=== PATIENT | female | born 2000 | race Caucasian/White ===

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

== ENCOUNTER 2018-03-03 21:52 | Emergency (ER) | payer BC ==
[~2018-03-03] VITALS: Ht 172.7 cm; Wt 120.0 kg
[~2018-03-03 21:52] MED LIST changes: +LORA-254 PO; -LORA-434 PO
[2018-03-03 22:00] VITALS: BP 122/70
--- NOTE | 2018-03-03 22:43 | EKG ---
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
[2018-03-03 22:51] LABS: BARBITURATES NEG (NEG); BENZODIAZEPINES NEG (NEG); CANNABINOIDS NEG (NEG); COCAINE NEG (NEG); METHADONE NEG (NEG); OPIATES NEG (NEG); PHENCYCLIDINE NEG (NEG)
[2018-03-03 22:52] LABS: AMPHETAMINE/METHAMPHETAMINE NEG (NEG)
[2018-03-03 23:00] LABS: BILIRUBIN,URINE NEG (NEG); CLARITY,URINE HAZY; COLOR,URINE YELLOW; GLUCOSE,URINE NEG (NEG)
[2018-03-03] MEDS ORDERED: IV NORMAL SALINE 1,000ML 1,000 ML IV ONE (23:00)
[2018-03-03 23:01] LABS: BACTERIA,URINE FEW /HPF (0-FEW); NITRITE,URINE NEG (NEG); RBC,URINE OCC /HPF (0-2); SQUAMOUS EPITHELIAL CELL,UR FEW /LPF; UROBILINOGEN,URINE 2 mg/dL (0.2 mg/dL); WBC,URINE 0 /HPF (0-4)
[2018-03-03 23:02] LABS: U PREG PATIENT NEGATIVE (NEG)
[2018-03-03 23:41] LABS: BASO % 0 % (0-3); EOS # 0.1 x10^3/uL (0.0-0.7); EOS % 2 % (0-3); HEMATOCRIT 34.3 % (36.0-47.0); HEMOGLOBIN 11.3 g/dL (12.0-15.5); LYMPH # 3.4 x10^3/uL (1.0-4.8); LYMPH % 34 % (24-48); MEAN CORPUSCULAR HEMOGLOBIN 27 pg (25-35); MEAN CORPUSCULAR HGB CONC 33 g/dL (31-37); MEAN CORPUSCULAR VOLUME 82 fL (79-100); MONO # 0.6 x10^3/uL (0.0-1.1); MONO % 6 % (0-9); NEUT # 5.8 x10^3uL (1.8-7.7); NEUT % 58 % (31-73); PLATELET COUNT 231 x10^3/uL (140-400); RED BLOOD COUNT 4.19 x10^6/uL (3.50-5.40); RED CELL DISTRIBUTION WIDTH 15.3 % (11.5-14.5); WHITE BLOOD COUNT 10.1 x10^3/uL (4.0-11.0)
[2018-03-03 23:51] LABS: ALBUMIN 3.6 g/dL (3.4-5.0); ALBUMIN/GLOBULIN RATIO 0.9 (1.0-1.7); ALK PHOS 90 U/L (46-116); ALT (SGPT) 17 U/L (14-59); ANION GAP 10 (6-14); AST (SGOT) 11 U/L (15-37); BLOOD UREA NITROGEN 12 mg/dL (7-20); BUN/CREATININE RATIO 15 (6-20); CALCIUM 9.4 mg/dL (8.5-10.1); CARBON DIOXIDE 26 mmol/L (21-32); CHLORIDE 105 mmol/L (98-107); CREATININE 0.8 mg/dL (0.6-1.0); GFR 91.4; GLUCOSE 103 mg/dL (70-99); LIPASE 129 U/L (73-393); MAGNESIUM 1.9 mg/dL (1.8-2.4); POTASSIUM 3.2 mmol/L (3.5-5.1); SODIUM 141 mmol/L (136-145); TOTAL BILIRUBIN 0.2 mg/dL (0.2-1.0); TOTAL PROTEIN 7.8 g/dL (6.4-8.2)
--- NOTE | 2018-03-04 00:17 | PHYS DOC ---
Past History Additional Past Medical Histor: palpitations Past Surgical History: Other Additional Past Surgical Histo: cardiac ablation Smoking: Non-smoker Alcohol Use: None Drug Use: None Adult General Chief Complaint Chief Complaint: Palpitations HPI HPI 18-year-old female with past medical history of cardiac ablation presents with report of tachycardia up to 115 today. Denies fever or chills. Denies chest pain or shortness of breath. Denies leg swelling or calf tenderness. Patient reported concern that she might be in an arrhythmia. Denies . Denies trauma. Review of Systems Review of Systems Constitutional: Denies fever or chills [] Eyes: Denies change in visual acuity, redness, or eye pain [] HENT: Denies nasal congestion or sore throat [] Respiratory: Denies cough or shortness of breath [] Cardiovascular: Denies chest pain or syncope, reports palpitations GI: Denies abdominal pain, nausea, vomiting, or diarrhea [] Integument: Denies rash or skin lesions [] Neurologic: Denies headache, focal weakness or sensory changes Complete systems were reviewed and found to be within normal limits, except as documented in this note. Current Medications Current Medications Current Medications Medications (Trade) Dose Ordered Sig/Christina Start Time Stop Time Status Last Admin Dose Admin Sodium Chloride 1,000 ml @ 1,000 mls/hr 1X ONCE 03/03/18 23:00 03/03/18 23:59 DC Allergies Allergies Allergies Coded Allergies Type Severity Reaction Last Updated Verified strawberry Allergy Intermediate 08/09/16 Yes Physical Exam Physical Exam Constitutional: Well developed, well nourished, no acute distress, non-toxic appearance. [] HENT: Normocephalic, atraumatic, oropharynx moist, Eyes: conjunctiva normal, no discharge. [] Neck: Normal range of motion, no tenderness, supple, no meningeal signs Cardiovascular: Heart rate regular rhythm, no murmur [] Lungs & Thorax: Bilateral breath sounds clear to auscultation, no wheezing Skin: Warm, dry, no erythema, no rash. [] Extremities: No tenderness, ROM intact, no edema. [] Neurologic: Alert and oriented X 3, normal motor function, normal sensory function, no focal deficits noted. [] Psychologic: Affect normal, judgement normal, mood - appears anxious Current Patient Data Lab Results Laboratory Tests Test 03/03/18 22:20 03/03/18 22:30 03/03/18 23:10 Urine Collection Type Void Urine Color Yellow Urine Clarity Hazy Urine pH 5.5 Urine Specific [place] >=1.030 Urine Protein Neg (NEG-TRACE) Urine Glucose (UA) Neg mg/dL (NEG) Urine Ketones (Stick) Neg mg/dL (NEG) Urine Blood Small (NEG) Urine Nitrite Neg (NEG) Urine Bilirubin Neg (NEG) Urine Urobilinogen Dipstick 2 mg/dL (0.2 mg/dL) Urine Leukocyte Esterase Neg (NEG) Urine RBC Occ /HPF (0-2) Urine WBC 0 /HPF (0-4) Urine Squamous Epithelial Cells Few /LPF Urine Calcium Phosphate Crystals Present /HPF Urine Bacteria Few /HPF (0-FEW) Urine Mucus Slight /LPF Urine Opiates Screen Neg (NEG) Urine Methadone Screen Neg (NEG) Urine Barbiturates Neg (NEG) Urine Phencyclidine Screen Neg (NEG) Urine Amphetamine/Methamphetamine Neg (NEG) Urine Benzodiazepines Screen Neg (NEG) Urine Cocaine Screen Neg (NEG) Urine Cannabinoids Screen Neg (NEG) Urine Ethyl Alcohol Neg (NEG) Urine Test Negative (NEG) White Blood Count 10.1 x10^3/uL (4.0-11.0) Red Blood Count 4.19 x10^6/uL (3.50-5.40) Hemoglobin 11.3 g/dL (12.0-15.5) L Hematocrit 34.3 % (36.0-47.0) L Mean Corpuscular Volume 82 fL (79-100) Mean Corpuscular Hemoglobin 27 pg (25-35) Mean Corpuscular Hemoglobin Concent 33 g/dL (31-37) Red Cell Distribution Width 15.3 % (11.5-14.5) H Platelet Count 231 x10^3/uL (140-400) Neutrophils (%) (Auto) 58 % (31-73) Lymphocytes (%) (Auto) 34 % (24-48) Monocytes (%) (Auto) 6 % (0-9) Eosinophils (%) (Auto) 2 % (0-3) Basophils (%) (Auto) 0 % (0-3) Neutrophils # (Auto) 5.8 x10^3uL (1.8-7.7) Lymphocytes # (Auto) 3.4 x10^3/uL (1.0-4.8) Monocytes # (Auto) 0.6 x10^3/uL (0.0-1.1) Eosinophils # (Auto) 0.1 x10^3/uL (0.0-0.7) Basophils # (Auto) 0.0 x10^3/uL (0.0-0.2) Sodium Level 141 mmol/L (136-145) Potassium Level 3.2 mmol/L (3.5-5.1) L Chloride Level 105 mmol/L (98-107) Carbon Dioxide Level 26 mmol/L (21-32) Anion Gap 10 (6-14) Blood Urea Nitrogen 12 mg/dL (7-20) Creatinine 0.8 mg/dL (0.6-1.0) Estimated GFR (Cockcroft-Gault) 91.4 BUN/Creatinine Ratio 15 (6-20) Glucose Level 103 mg/dL (70-99) H Calcium Level 9.4 mg/dL (8.5-10.1) Magnesium Level 1.9 mg/dL (1.8-2.4) Total Bilirubin 0.2 mg/dL (0.2-1.0) Aspartate Amino Transferase (AST) 11 U/L (15-37) L Alanine Aminotransferase (ALT) 17 U/L (14-59) Alkaline Phosphatase 90 U/L (46-116) Creatine Kinase 40 U/L (26-192) Creatine Kinase MB (Mass) < 0.5 ng/mL (0.0-3.6) Creatine Kinase MB Relative Index 1.3 % (0-4) Troponin I Quantitative < 0.017 ng/mL (0-0.055) Total Protein 7.8 g/dL (6.4-8.2) Albumin 3.6 g/dL (3.4-5.0) Albumin/Globulin Ratio 0.9 (1.0-1.7) L Lipase 129 U/L (73-393) EKG EKG NSR at 99bpm, No ST elevation, QRS 106ms, QT/QTc 370/481ms, 03/03/18 at 2241 Radiology/Procedures Radiology/Procedures [] Course & Med Decision Making Course & Med Decision Making Pertinent Labs and Imaging studies reviewed. (See chart for details) Patient presents with report of palpitations which is been ongoing today. Patient does have significant history including cardiac ablations. EKG stable. Telemetry monitoring utilized. Labs obtained and posted to chart. Potassium replaced. Patient stable for discharge with outpatient follow-up with PCP/ geotechnical intern. Discussed findings and plan with patient, who acknowledges understanding and agreement. Dragon Disclaimer Dragon Disclaimer This electronic medical record was generated, in whole or in part, using a voice recognition dictation system. Departure Departure: Impression: Primary Impression: Heart palpitations Additional Impression: Hypokalemia Disposition: 01 HOME, SELF-CARE Condition: IMPROVED Referrals: ESMER PICHARDO (PCP) Patient Instructions: Hypokalemia, Palpitations, Potassium Content of Foods Problem Qualifiers LISA MOSER DO Mar 04, 2018 00:17
[2018-03-04] MEDS ORDERED: POTASSIUM CHLORIDE 20 MEQ TABLET.ER. PO ONE (00:30)
== END 2018-03-04 00:41 | disposition home or self-care (01) ==
LOC: ER 21:52
DX: R00.2 Palpitations (principal); E87.6 Hypokalemia; R00.0 Tachycardia, unspecified; Z91.018 Allergy to other foods
CPT/HCPCS: 36415; 80053; 80307; 81001; 81025; 82553; 83690; 83735; 84484; 85025; 93005; 99285-25; G0479; J7030

== ENCOUNTER → 2018-09-26 | Outpatient (CLI) | payer BC ==
[~2018-09-26] MED LIST changes: +HYDR-1179 PO; -HYDR-79 PO
--- NOTE | 2018-09-26 16:14 | CARD ---
MR#: [id number] Date of Study: 09/26/2018 Ordering Physician: JOEL LAL, Referring Physician: JOEL LAL, Tech: Aisha Plaza RDCS APPROVED REPORT EXAM: Two-dimensional and M-mode echocardiogram with Doppler and color Doppler. Other Information Quality : Technically LimitedHR: 71bpm Rhythm : NSRTechnically limited study due to body habitus. INDICATION Palpitations 2D DIMENSIONS RVDd2.9 (2.9-3.5cm)Left Atrium(2D)3.1 (1.6-4.0cm) IVSd0.8 (0.7-1.1cm)Aortic Root(2D)2.6 (2.0-3.7cm) LVDd5.7 (3.9-5.9cm)LVOT Diameter2.0 (1.8-2.4cm) PWd1.0 (0.7-1.1cm)LVDs3.5 (2.5-4.0cm) FS (%) 39.1 %SV111.3 ml LVEF(%)68.8 (>50%) M-Mode DIMENSIONS Left Atrium(MM)3.74 (2.5-4.0cm)Aortic Root2.73 (2.2-3.7cm) Aortic Valve AoV Peak Trav.149.7cm/sAoV VTI36.0cm AO Peak GR.9.0mmHgLVOT Peak Trav.99.9cm/s LVOT VTI 19.91cmAO Mean GR.4mmHg JAMEEL (VMAX)2.56tp8RSG (VTI)1.72cm2 Mitral Valve MV E Arvzyizr945.6cm/sMV E Peak Gr.78mmHg MV DECEL CVXP796siAP A Ycrtgvet62.1cm/s E/A Ratio2.0MV A Xcalqant938vk Pulmonary Valve PV Peak Gcceeezl71.2cm/sPV Peak Grad.4mmHg Tricuspid Valve TR P. Bqhmcsqk007ij/sRAP OZKTJLBD8xuOf TR Peak Gr.83kmRqMNBZ10fqDs Pulmonary Vein S1 Oyrnvreq67.5cm/sD2 Lpctnpjp25.0cm/s LEFT VENTRICLE The left ventricle is normal size. There is normal left ventricular wall thickness. The left ventricu lar systolic function is normal and the ejection fraction is within normal range. The Ejection Fracti on is 60-65%. There is normal LV segmental wall motion. The left ventricular diastolic function and f illing is normal for age. RIGHT VENTRICLE The right ventricle is normal size. There is normal right ventricular wall thickness. The right ventr icular systolic function is normal. ATRIA The left atrium size is normal. The right atrium size is normal. The interatrial septum is intact wit h no evidence for an atrial septal defect or patent foramen ovale as noted on 2-D or Doppler imaging. AORTIC VALVE The aortic valve is normal in structure and function. The aortic valve is trileaflet. Doppler and Col or Flow revealed no significant aortic regurgitation. There is no significant aortic valvular stenosi s. MITRAL VALVE The mitral valve is normal in structure and function. There is no evidence of mitral valve prolapse. There is no mitral valve stenosis. Doppler and Color-flow revealed trace mitral regurgitation. TRICUSPID VALVE The tricuspid valve is normal in structure and function. Doppler and Color Flow revealed trace tricus pid regurgitation. The PA pressure was estimated at 20 mmHg. There is no tricuspid valve prolapse or vegetation. There is no tricuspid valve stenosis. PULMONIC VALVE Pulmoinc valve measuring 3.2cm. Doppler and Color Flow revealed trace pulmonic valvular regurgitation . There is no pulmonic valvular stenosis. GREAT VESSELS The aortic root is normal in size. The ascending aorta is normal in size. The IVC is normal in size a nd collapses >50% with inspiration. PERICARDIAL EFFUSION There is no evidence of significant pericardial effusion. Critical Notification Critical Value: No <Conclusion> The left ventricle is normal size. The left ventricular systolic function is normal and the ejection fraction is within normal range. The Ejection Fraction is 60-65%. There is no significant aortic valvular stenosis. Doppler and Color Flow revealed no significant aortic regurgitation. Doppler and Color-flow revealed trace mitral regurgitation. Doppler and Color Flow revealed trace tricuspid regurgitation. The PA pressure was estimated at 20 mmHg. Signed by : Kyaw Walker MD Electronically Approved : 09/26/2018 16:13:26
== END | disposition home or self-care (01) ==
LOC: ECHO 13:07
PROVIDERS: ATTEND Internal Medicine Cardiovascular Disease
DX: R00.2 Palpitations (principal)
CPT/HCPCS: 93306

== ENCOUNTER 2018-10-02 17:22 | Emergency (ER) | payer BC ==
[~2018-10-02] VITALS: Ht 172.7 cm; Wt 119.3 kg
--- NOTE | 2018-10-02 18:30 | ED.ADGEN ---
Past History Past Medical History: Other Additional Past Medical Histor: palpitations Past Surgical History: Other Additional Past Surgical Histo: cardiac ablation Smoking: Non-smoker Alcohol Use: None Drug Use: None Adult General Chief Complaint Chief Complaint arm pain [facility] HPI 18 years old female presented to the emergency department with the right arm feeling stiff, no pain, she has been complaining of minimal neck pain for the past 2 days no chest pain or shortness breath no swelling Review of Systems Review of Systems Constitutional: Denies fever or chills [] Eyes: Denies change in visual acuity, redness, or eye pain [] HENT: Denies nasal congestion or sore throat [] Respiratory: Denies cough or shortness of breath [] Cardiovascular: No additional information not addressed in HPI [] GI: Denies abdominal pain, nausea, vomiting, bloody stools or diarrhea [] : Denies dysuria or hematuria [] Musculoskeletal: Denies back pain or joint pain [] Integument: Denies rash or skin lesions [] Neurologic: Denies headache, focal weakness or sensory changes [] Endocrine: Denies polyuria or polydipsia [] All other systems were reviewed and found to be within normal limits, except as documented in this note. Allergies Allergies Allergies Coded Allergies Type Severity Reaction Last Updated Verified strawberry Allergy Intermediate 08/09/16 Yes Physical Exam Physical Exam Constitutional: Well developed, well nourished, no acute distress, non-toxic appearance. [] HENT: Normocephalic, atraumatic, bilateral external ears normal, oropharynx moist, no oral exudates, nose normal. [] Eyes: PERRLA, EOMI, conjunctiva normal, no discharge. [] Neck: Normal range of motion, no tenderness, supple, no stridor. [] Cardiovascular:Heart rate regular rhythm, no murmur [] Lungs & Thorax: Bilateral breath sounds clear to auscultation [] Abdomen: Bowel sounds normal, soft, no tenderness, no masses, no pulsatile masses. [] Skin: Warm, dry, no erythema, no rash. [] Back: No tenderness, no CVA tenderness. [] Extremities: No tenderness, no cyanosis, no clubbing, ROM intact, no edema. [] Neurologic: Alert and oriented X 3, normal motor function, normal sensory function, no focal deficits noted. [] Psychologic: Affect normal, judgement normal, mood normal. [] Current Patient Data Vital Signs Vital Signs Date Time Temp Pulse Resp B/P (MAP) Pulse Ox O2 Delivery O2 Flow Rate FiO2 10/02/18 17:29 98.0 68 18 98 Room Air Lab Results Laboratory Tests Test 10/02/18 20:00 D-Dimer (Miladys) 0.24 mg/L (0.00-0.50) Sodium Level 141 mmol/L (136-145) Potassium Level 3.4 mmol/L (3.5-5.1) L Chloride Level 104 mmol/L (98-107) Carbon Dioxide Level 27 mmol/L (21-32) Anion Gap 10 (6-14) Blood Urea Nitrogen 13 mg/dL (7-20) Creatinine 0.7 mg/dL (0.6-1.0) Estimated GFR (Cockcroft-Gault) 106.7 Glucose Level 87 mg/dL (70-99) Calcium Level 9.7 mg/dL (8.5-10.1) Troponin I Quantitative < 0.017 ng/mL (0-0.055) EKG EKG [] Radiology/Procedures Radiology/Procedures [] Course & Med Decision Making Course & Med Decision Making Pertinent Labs and Imaging studies reviewed. (See chart for details) [] Final Impression Final Impression [] Problems: (1) Arm pain Qualifiers: Qualified Codes: M79.601 - Pain in right arm Dragon Disclaimer Dragon Disclaimer This electronic medical record was generated, in whole or in part, using a voice recognition dictation system. DARREL DIOP MD Oct 02, 2018 18:30
[2018-10-02 20:20] LABS: CALCIUM 9.7 mg/dL (8.5-10.1); CREATININE 0.7 mg/dL (0.6-1.0); GFR 106.7; POTASSIUM 3.4 mmol/L (3.5-5.1)
[2018-10-02 21:20] VITALS: BP 115/69
--- NOTE | 2018-10-02 23:01 | EKG ---
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
== END 2018-10-02 21:11 | disposition home or self-care (01) ==
LOC: ER 17:22
DX: M79.601 Pain in right arm (principal); M54.2 Cervicalgia; Z91.018 Allergy to other foods
CPT/HCPCS: 36415; 80048; 84484; 85379; 93005; 99284

== ENCOUNTER 2018-12-07 11:05 | Emergency (ER) | payer BC ==
[~2018-12-07] VITALS: Ht 172.7 cm; Wt 120.0 kg
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
[2018-12-07 11:30] VITALS: BP 121/75
== END 2018-12-07 11:32 | disposition home or self-care (01) ==
LOC: ER 11:05
DX: S20.212A Contusion of left front wall of thorax, initial encounter (principal); Z91.018 Allergy to other foods; W22.8XXA Striking against or struck by other objects, initial encounter; Y93.89 Activity, other specified; Y92.89 Other specified places as the place of occurrence of the external cause; Y99.8 Other external cause status
CPT/HCPCS: 99283

== ENCOUNTER → 2018-12-12 | Outpatient (CLI) | payer BC ==
[2018-12-07 11:30] VITALS: BP 121/75
--- NOTE | 2018-12-12 16:33 | RAD ---
ABDOMEN SUPINE UPRIGHT History: Right lower quadrant pain for 2 weeks Comparison: None. Findings: Single supine and single upright views of abdomen are submitted. There is an overall nonobstructive bowel gas pattern. Device or external jewelry projects over the cardiac silhouette. There is no free air. No usual calcifications are identified of the abdomen or pelvis. Impression: 1. There is a nonobstructive bowel gas pattern. Electronically signed by: Maged Singleton MD (12/12/2018 4:30 PM) [id number]
== END | disposition home or self-care (01) ==
LOC: PMG 14:51
PROVIDERS: ATTEND Physician Assistant
DX: R10.31 Right lower quadrant pain (principal)
CPT/HCPCS: 74019; 74021

== ENCOUNTER → 2018-12-20 | Outpatient (CLI) | payer BC ==
[2018-12-07 11:30] VITALS: BP 121/75
--- NOTE | 2018-12-20 09:48 | RAD ---
EXAM: Pelvic sonogram. HISTORY: Pelvic pain. TECHNIQUE: Transabdominal and transvaginal sonographic imaging of the pelvis was performed. COMPARISON: None. FINDINGS: The uterus measures 7.1 x 5.1 x 3.8 cm. The endometrial stripe measures 11 mm transvaginally. There is a 4.5 x 3.8 x 3.2 cm complex right ovarian cyst, possibly hemorrhagic in etiology. The combination of the right ovarian cyst and surrounding ovarian parenchyma measures 5.6 x 4.5 x 4.6 cm. The left ovary measures 2.6 x 2.1 x 2.3 cm. There are small bilateral ovarian antral follicles. There are nabothian cysts within the cervix. There is a moderate amount of pelvic free fluid. IMPRESSION: 1. 4.5 cm complex right ovarian cyst, possibly hemorrhagic in etiology. 2. Moderate pelvic free fluid. Electronically signed by: Cheri Meraz MD (12/20/2018 9:46 AM) [id number]
--- NOTE | 2018-12-20 09:55 | RAD ---
Abdominal ultrasound, 12/20/2018: HISTORY: Abdominal pain The gallbladder is within normal limits in size. There is no sonographic evidence of cholelithiasis. The gallbladder mcleod are not thickened. The common hepatic duct is of normal caliber. There is no evidence of a hepatic mass or intrahepatic bile duct dilatation. The visualized portions of the pancreas, spleen and both kidneys are unremarkable. The abdominal aorta and inferior vena cava show no abnormality. No free fluid is evident in the abdomen. IMPRESSION: No significant abnormality is detected Electronically signed by: Avel Felder MD (12/20/2018 9:53 AM) [facility]
== END | disposition home or self-care (01) ==
LOC: US 07:45
PROVIDERS: ATTEND Physician Assistant
DX: N83.291 Other ovarian cyst, right side (principal); N88.8 Other specified noninflammatory disorders of cervix uteri
CPT/HCPCS: 76700; 76830; 76856

== ENCOUNTER 2019-02-07 19:24 | Emergency (ER) | payer BC ==
[~2019-02-07] VITALS: Ht 172.7 cm; Wt 114.8 kg
--- NOTE | 2019-02-07 19:33 | ED.ADGEN ---
Past History Past Medical History: Other Additional Past Medical Histor: palpitations Past Surgical History: Other Additional Past Surgical Histo: cardiac ablation Smoking: Non-smoker Alcohol Use: None Drug Use: None Adult General Chief Complaint Chief Complaint ".. I got some lower abd... pain... I have really bad endometriosis.. I have had surgeries.... And Dr. Navarrete put an IUD in yesterday.. every thing seemed okay.. but with the start of my period.. my endometriosis really flare up... and the vicoprofen did not work for the pain before.. so I wanted to get a shot or something..." HPI HPI Patient is a 19 year old female who presents with abdomen pain she associates with her endometriosis. Patient recently had an IUD placed by Dr. Navarrete. Patient concerned that IUD has become malpositioned. Patient has history of previous laparoscopic surgeries for endometriosis. Has also had laparotomy [facility] for ovarian cyst. . She denies any bad food. Patient denies any trauma. No recent travel. No history of STDs. 1 lifetime sex partner. Review of Systems Review of Systems Constitutional: Denies fever or chills [] Eyes: Denies change in visual acuity, redness, or eye pain [] HENT: Denies nasal congestion or sore throat [] Respiratory: Denies cough or shortness of breath [] Cardiovascular: No additional information not addressed in HPI [] GI: Complaints of cramping abdominal pain, nausea,. Denies vomiting, bloody stools or diarrhea [] : Denies dysuria or hematuria [] Musculoskeletal: Denies back pain or joint pain [] Integument: Denies rash or skin lesions [] Neurologic: Denies headache, focal weakness or sensory changes [] Endocrine: Denies polyuria or polydipsia [] All other systems were reviewed and found to be within normal limits, except as documented in this note. Family History Family History Noncontributory Current Medications Current Medications Current Medications Medications (Trade) Dose Ordered Sig/Christina Start Time Stop Time Status Last Admin Dose Admin Ketorolac Tromethamine (Toradol Im) 60 mg 1X ONCE 02/07/19 20:30 02/07/19 20:31 DC 02/07/19 20:36 60 MG Morphine Sulfate (Morphine 10mg Syringe) 10 mg 1X ONCE 02/07/19 20:30 02/07/19 20:31 DC 02/07/19 20:36 10 MG Allergies Allergies Allergies Coded Allergies Type Severity Reaction Last Updated Verified strawberry Allergy Intermediate 08/09/16 Yes Physical Exam Physical Exam Constitutional: Moderately acute distress, non-toxic appearance. [] HENT: Normocephalic, atraumatic, bilateral external ears normal, oropharynx moist, no oral exudates, nose normal. [] Eyes: PERRLA, EOMI, conjunctiva normal, no discharge. [] Neck: Normal range of motion, no tenderness, supple, no stridor. [] Cardiovascular:Heart rate regular rhythm, no murmur [] Lungs & Thorax: Bilateral breath sounds clear to auscultation [] Abdomen: Bowel sounds decreased, soft, generalized tenderness, no masses, no pulsatile masses. [] Of exam shows mild spotting from os. No cervical motion tenderness. No adnexal tenderness. IUD string noted. Skin: Warm, dry, no erythema, no rash. [] Back: No tenderness, no CVA tenderness. [] Extremities: No tenderness, no cyanosis, no clubbing, ROM intact, no edema. [] No psoas sign or heeltap. Neurologic: Alert and oriented X 3, normal motor function, normal sensory function, no focal deficits noted. [] Psychologic: Affect normal, judgement normal, mood normal. [] Current Patient Data Vital Signs Vital Signs Date Time Temp Pulse Resp B/P (MAP) Pulse Ox O2 Delivery O2 Flow Rate FiO2 02/07/19 21:57 63 16 128/65 (86) 98 02/07/19 19:40 97.5 Room Air Lab Results Laboratory Tests Test 02/07/19 19:31 02/07/19 19:41 02/07/19 20:26 Urine Collection Type Unknown Urine Color Yellow Urine Clarity Clear Urine pH 7.0 Urine Specific Horn[place] 1.020 Urine Protein Neg (NEG-TRACE) Urine Glucose (UA) Neg mg/dL (NEG) Urine Ketones (Stick) Neg mg/dL (NEG) Urine Blood Small (NEG) Urine Nitrite Neg (NEG) Urine Bilirubin Neg (NEG) Urine Urobilinogen Dipstick 1 mg/dL (0.2 mg/dL) Urine Leukocyte Esterase Neg (NEG) Urine Opiates Screen Neg (NEG) Urine Methadone Screen Neg (NEG) Urine Barbiturates Neg (NEG) Urine Phencyclidine Screen Neg (NEG) Urine Amphetamine/Methamphetamine Neg (NEG) Urine Benzodiazepines Screen Neg (NEG) Urine Cocaine Screen Neg (NEG) Urine Cannabinoids Screen Neg (NEG) Urine Ethyl Alcohol Neg (NEG) POC Urine HCG, Qualitative hcg negative (Negative) Microbiology 02/07/19 Wet Prep - Final, Complete Microbiology 02/07/19 Wet Prep - Final, Complete EKG EKG [] Radiology/Procedures Radiology/Procedures My interpretation of acute abdomen film shows no acute cardiopulmonary findings. Does have a loop recorder. No free air in the diaphragm. Increased stool in colon. Does have an IUD which appears to be centrally located.[] Course & Med Decision Making Course & Med Decision Making Pertinent Labs and Imaging studies reviewed. (See chart for details). Pt. to stay on clear fluids x 2 days. Push fluids. Tylenol and Ibuprofen for pain. Vicoprofen as previously directed. Follow up pending cultures. Re-exam if no improvement. Follow up with Dr. Navarrete. [] Final Impression Final Impression 1. Abdomen Pain 2. Endometriosis 3. Ovarian Cysts 4. Recent IUD placement 5. Hx. SVT- Loop recorder Dragon Disclaimer Dragon Disclaimer This electronic medical record was generated, in whole or in part, using a voice recognition dictation system. Discharge Summary Visit Information Final Diagnosis Problems Medical Problems: (1) Endometriosis Status: Acute (2) Pain in the abdomen Status: Acute Brief Hospital Course Allergies Allergies Coded Allergies Type Severity Reaction Last Updated Verified strawberry Allergy Intermediate 08/09/16 Yes Vital Signs Vital Signs Date Time Temp Pulse Resp B/P (MAP) Pulse Ox O2 Delivery O2 Flow Rate FiO2 02/07/19 21:57 63 16 128/65 (86) 98 02/07/19 19:40 97.5 Room Air Lab Results Laboratory Tests Test 02/07/19 19:31 02/07/19 19:41 02/07/19 20:26 Urine Collection Type Unknown Urine Color Yellow Urine Clarity Clear Urine pH 7.0 Urine Specific Hornbeck 1.020 Urine Protein Neg (NEG-TRACE) Urine Glucose (UA) Neg mg/dL (NEG) Urine Ketones (Stick) Neg mg/dL (NEG) Urine Blood Small (NEG) Urine Nitrite Neg (NEG) Urine Bilirubin Neg (NEG) Urine Urobilinogen Dipstick 1 mg/dL (0.2 mg/dL) Urine Leukocyte Esterase Neg (NEG) Urine Opiates Screen Neg (NEG) Urine Methadone Screen Neg (NEG) Urine Barbiturates Neg (NEG) Urine Phencyclidine Screen Neg (NEG) Urine Amphetamine/Methamphetamine Neg (NEG) Urine Benzodiazepines Screen Neg (NEG) Urine Cocaine Screen Neg (NEG) Urine Cannabinoids Screen Neg (NEG) Urine Ethyl Alcohol Neg (NEG) Bedside Urine HCG, Qualitative hcg negative (Negative) Brief Hospital Course Ms. Boo is a 19 old female who presented with complaints of endometriosis pain, and concerns that the IUD has become malpositioned. Pt., to followup pending cultures. Re- exam if no improvement. IUD appears in proper position. Must follow up. Discharge Information Condition at Discharge: Improved, Stable Disposition/Orders: D/C to Home Dischare Medications Current Medications Ketorolac Tromethamine (Toradol Im) 60 mg 1X ONCE IM Last administered on 02/07/19at 20:36; Admin Dose 60 MG; Start 02/07/19 at 20:30; Stop 02/07/19 at 20:31; Status DC Morphine Sulfate (Morphine 10mg Syringe) 10 mg 1X ONCE SQ Last administered on 02/07/19at 20:36; Admin Dose 10 MG; Start 02/07/19 at 20:30; Stop 02/07/19 at 20:31; Status DC Active Scripts Active Naprosyn (Naproxen) 500 Mg Tablet 1 Tab PO BID Ativan (Lorazepam) 1 Mg Tablet 1 Mg PO TID 5 Days Cyclobenzaprine Hcl 5 Mg Tablet 5 Mg PO QIDPRN PRN Hydrocodone-Ibuprofen 7.5-200 (Hydrocodone/Ibuprofen) 1 Each Tablet 1 Tab PO PRN Q6HRS PRN Discharge Summary Visit Information Final Diagnosis Problems Medical Problems: (1) Endometriosis Status: Acute (2) Pain in the abdomen Status: Acute Brief Hospital Course Allergies Allergies Coded Allergies Type Severity Reaction Last Updated Verified strawberry Allergy Intermediate 08/09/16 Yes Vital Signs Vital Signs Date Time Temp Pulse Resp B/P (MAP) Pulse Ox O2 Delivery O2 Flow Rate FiO2 02/07/19 21:57 63 16 128/65 (86) 98 02/07/19 19:40 97.5 Room Air Lab Results Laboratory Tests Test 02/07/19 19:31 02/07/19 19:41 02/07/19 20:26 Urine Collection Type Unknown Urine Color Yellow Urine Clarity Clear Urine pH 7.0 Urine Specific Hornbeck 1.020 Urine Protein Neg (NEG-TRACE) Urine Glucose (UA) Neg mg/dL (NEG) Urine Ketones (Stick) Neg mg/dL (NEG) Urine Blood Small (NEG) Urine Nitrite Neg (NEG) Urine Bilirubin Neg (NEG) Urine Urobilinogen Dipstick 1 mg/dL (0.2 mg/dL) Urine Leukocyte Esterase Neg (NEG) Urine Opiates Screen Neg (NEG) Urine Methadone Screen Neg (NEG) Urine Barbiturates Neg (NEG) Urine Phencyclidine Screen Neg (NEG) Urine Amphetamine/Methamphetamine Neg (NEG) Urine Benzodiazepines Screen Neg (NEG) Urine Cocaine Screen Neg (NEG) Urine Cannabinoids Screen Neg (NEG) Urine Ethyl Alcohol Neg (NEG) Bedside Urine HCG, Qualitative hcg negative (Negative) Brief Hospital Course Ms. Boo is a 19 old [sex] who presented with [ ] Discharge Information Dischare Medications Current Medications Ketorolac Tromethamine (Toradol Im) 60 mg 1X ONCE IM Last administered on 02/07at 20:36; Admin Dose 60 MG; Start 02/07/19 at 20:30; Stop 02/07/19 at 20:31; Status DC Morphine Sulfate (Morphine 10mg Syringe) 10 mg 1X ONCE SQ Last administered on 02/07/19at 20:36; Admin Dose 10 MG; Start 02/07/19 at 20:30; Stop 02/07/19 at 20:31; Status DC Active Scripts Active Naprosyn (Naproxen) 500 Mg Tablet 1 Tab PO BID Ativan (Lorazepam) 1 Mg Tablet 1 Mg PO TID 5 Days Cyclobenzaprine Hcl 5 Mg Tablet 5 Mg PO QIDPRN PRN Hydrocodone-Ibuprofen 7.5-200 (Hydrocodone/Ibuprofen) 1 Each Tablet 1 Tab PO PRN Q6HRS PRN Dragon Disclaimer This chart was dictated in whole or in part using Voice Recognition software in a busy, high-work load, and often noisy Emergency Department environment. It may contain unintended and wholly unrecognized errors or omissions. Dragon Disclaimer This chart was dictated in whole or in part using Voice Recognition software in a busy, high-work load, and often noisy Emergency Department environment. It may contain unintended and wholly unrecognized errors or omissions. VERITO RINALDI MD Feb 07, 2019 19:33
[2019-02-07] MEDS ORDERED: KETOROLAC 60 MG/2 ML VIAL. IM ONE (20:30)
[2019-02-07] MEDS ORDERED: MORPHINE SULFATE 10 MG/ML SYRINGE. SQ ONE (20:30)
[2019-02-07 20:35] LABS: BILIRUBIN,URINE NEG (NEG); CLARITY,URINE CLEAR; COLOR,URINE YELLOW; GLUCOSE,URINE NEG (NEG); NITRITE,URINE NEG (NEG); UROBILINOGEN,URINE 1 mg/dL (0.2 mg/dL)
[2019-02-07 20:41] LABS: BARBITURATES NEG (NEG); BENZODIAZEPINES NEG (NEG); CANNABINOIDS NEG (NEG); COCAINE NEG (NEG); METHADONE NEG (NEG); OPIATES NEG (NEG); PHENCYCLIDINE NEG (NEG)
[2019-02-07 20:43] LABS: AMPHETAMINE/METHAMPHETAMINE NEG (NEG)
--- NOTE | 2019-02-07 21:53 | RAD ---
Three-view acute abdominal series. HISTORY: Pain, IUD placed 2 days ago, history of endometriosis 3 views were taken for an acute abdominal series. Lungs are clear. Heart is normal in size. There is no free air on the upright view of the abdomen or abnormal air-fluid levels. There is no bowel obstruction. There are no abnormal calcifications. There is an IUD in the pelvis. Ultrasound would be necessary to determine exact positioning. IMPRESSION: 1. No acute chest disease. 2. No free air or bowel obstruction or acute finding noted in the abdomen. 3. Intrauterine contraceptive device just to the right of midline in the pelvis. Electronically signed by: Benji Reaves MD (02/07/2019 9:51 PM) [facility]
[2019-02-07 21:57] VITALS: BP 128/65
[2019-02-10 01:11] LABS: CHLAMYDIA PROBE Negative (Negative)
== END 2019-02-07 21:57 | disposition home or self-care (01) ==
LOC: ER 19:24
DX: N80.9 Endometriosis, unspecified (principal); N83.209 Unspecified ovarian cyst, unspecified side; T83.32XA Displacement of intrauterine contraceptive device, initial encounter; Z91.018 Allergy to other foods
CPT/HCPCS: 36415; 74022; 80307; 81003; 81025; 87491; 87591; 96372; 99285; J1885; J2270; Q0111

== ENCOUNTER 2019-06-30 10:55 | Emergency (ER) | payer BC ==
[~2019-06-30] VITALS: Ht 172.7 cm; Wt 116.1 kg
[2019-06-30] MEDS ORDERED: MELO7.5T29 PO (11:26)
[2019-06-30] MEDS ORDERED: HYDR-3165 PO (11:26)
--- NOTE | 2019-06-30 11:26 | PHYS DOC ---
Past History Past Medical History: Endometriosis, Ovarian Cyst, Other Additional Past Medical Histor: palpitations Past Surgical History: Other Additional Past Surgical Histo: cardiac ablation Smoking: Non-smoker Alcohol Use: None Drug Use: None Adult General Chief Complaint Chief Complaint: ABSCESS HPI HPI Patient is a 19-year-old female presents for a evaluation of a lump on her back. Lump is been present for approximately the past month. She was seen several days ago by her primary care physician who started her on clindamycin, 300 mg, 4 times a day. She notes that it started draining yesterday. She applied a charcoal facemask to the area to try to help it dry up. Pain is moderate. She denies any fevers. Denies any nausea or vomiting. Touching the area makes it wor se.[] Review of Systems Review of Systems Constitutional: Denies fever or chills [] Eyes: Denies change in visual acuity, redness, or eye pain [] HENT: Denies nasal congestion or sore throat [] Respiratory: Denies cough or shortness of breath [] Cardiovascular: No chest pain or palpitations[] GI: Denies abdominal pain, nausea, vomiting, bloody stools or diarrhea [] : Denies dysuria or hematuria [] Musculoskeletal: Denies back pain or joint pain [] Integument: See history of present illness[] Neurologic: Denies headache, focal weakness or sensory changes [] Endocrine: Denies polyuria or polydipsia [] All other systems were reviewed and found to be within normal limits, except as documented in this note. Allergies Allergies Allergies Coded Allergies Type Severity Reaction Last Updated Verified strawberry Allergy Intermediate 08/09/16 Yes Physical Exam Physical Exam Constitutional: Well developed, well nourished, no acute distress, non-toxic appearance. [] HENT: Normocephalic, atraumatic, bilateral external ears normal, oropharynx moist, no oral exudates, nose normal. [] Eyes: PERRLA, EOMI, conjunctiva normal, no discharge. [] Neck: Normal range of motion, no tenderness, supple, no stridor. [] Cardiovascular:Heart rate regular rhythm, no murmur [] Lungs & Thorax: Bilateral breath sounds clear to auscultation [] Abdomen: Not examined. [] Skin: Warm, dry, erythematous and indurated region lower back, approximately 3 cm in diameter with some fluctuance towards the middle. There was no drainage. No petechiae noted.[] Back: No tenderness, no CVA tenderness. [] Extremities: No tenderness, no cyanosis, no clubbing, ROM intact, no edema. [] Neurologic: Alert and oriented X 3, normal motor function, normal sensory function, no focal deficits noted. [] Psychologic: Affect normal, judgement normal, mood normal. [] EKG EKG [] Radiology/Procedures Radiology/Procedures [] Course & Med Decision Making Course & Med Decision Making Pertinent Labs and Imaging studies reviewed. (See chart for details) [] Dragon Disclaimer Dragon Disclaimer This electronic medical record was generated, in whole or in part, using a voice recognition dictation system. Departure Departure: Impression: Primary Impression: Cutaneous abscess of back excluding buttocks Disposition: 01 HOME, SELF-CARE Condition: IMPROVED Referrals: ESMER PICHARDO (PCP) Follow-up in 2 days Patient Instructions: Abscess Additional Instructions: Follow-up with your primary care physician in 2 days for a recheck of the wound. Apply warm compresses for 15 minutes at a time, at least 4 times a day. Return to the ER if worsening pain, fever of more than 101, or any other concerns. Scripts Hydrocodone Bit/Acetaminophen (NORCO 5-325 TABLET) 1 Each Tablet 1 TAB PO Q4-6HRS for severe pain, #10 TAB Prov: DARCI PULLIAM DO 06/30/19 Meloxicam (MELOXICAM) 7.5 Mg Tablet 7.5 MG PO DAILY for PAIN, #20 TAB Prov: DARCI PULLIAM DO 06/30/19 Incision and Drainage Indication: Abscess lower back] Procedure: The patient was positioned appropriately and the skin over the incision site was cleaned initially to remove remnants of the charcoal mask, then prepped with Betadine. A needle aspiration was then made over the the center, region with most fluctuance and approximately 5 mL of purulent material was expressed. Patient's tetanus status was checked and updated. The patient tolerated the procedure well Complications: None DARCI PULLIAM DO Jun 30, 2019 11:26
[2019-06-30] MEDS ORDERED: DIPHTH,PERTUSS(ACELL),TET TOX 0.5 ML DISP.SYRIN. VAX IM ONE (11:30)
[2019-06-30 11:34] VITALS: BP 118/71
== END 2019-06-30 11:34 | disposition home or self-care (01) ==
LOC: ER 10:55
DX: L02.212 Cutaneous abscess of back [any part, except buttock and flank] (principal); Z91.018 Allergy to other foods
CPT/HCPCS: 10160; 90471; 90715; 99284

== ENCOUNTER → 2019-08-21 | Outpatient (CLI) | payer BC ==
[~2019-08-21] MED LIST changes: +HYDR-3165 PO; +MELO7.5T29 PO
--- NOTE | 2019-08-22 03:23 | RAD ---
Supine abdomen. HISTORY: Abdominal pain Supine views were taken of the abdomen. Bowel pattern is unremarkable. There are no abnormal calcifications. There is an intrauterine contraceptive device in the pelvis. IMPRESSION: 1. No bowel obstruction or acute finding in the abdomen. Electronically signed by: Benji Reaves MD (08/22/2019 3:20 AM) [facility]
== END | disposition home or self-care (01) ==
LOC: PMG 15:43
DX: R10.84 Generalized abdominal pain (principal); Z97.5 Presence of (intrauterine) contraceptive device
CPT/HCPCS: 74019

== ENCOUNTER 2019-11-21 21:00 | Emergency (ER) | payer BC ==
[~2019-11-21] VITALS: Ht 172.7 cm; Wt 120.0 kg
[2019-11-21] MEDS ORDERED: KETOROLAC 30 MG/ML VIAL. ONE (21:25)
--- NOTE | 2019-11-21 21:32 | PHYS DOC ---
Past History Past Medical History: Depression, Endometriosis, Ovarian Cyst, Other Additional Past Medical Histor: palpitations, [id number], Past Surgical History: Other Additional Past Surgical Histo: cardiac ablation, OVARIAN CYST Smoking: Non-smoker Alcohol Use: None Drug Use: None General Adult EDM: Chief Complaint: ABDOMINAL PAIN HPI: HPI: 19-year-old female with past medical history of endometriosis and ovarian cysts presents with report of pelvic pain which is been ongoing for the past 3 days. Patient reports pain has become significant that despite use of her previously prescribed Percocet and ibuprofen she has not gotten any relief. Patient does report some spotting after urinating. Reports some brown vaginal discharge. Denies fever or chills. Denies dysuria or hematuria. Reports some nausea when pain becomes most severe. Patient reports she called her AEROPHYSICS ENGINEER who instructed her to present to the ER if pain does not improve. Denies trauma. Denies . Patient reports she has a Mirena IUD. Review of Systems: Review of Systems: Constitutional: Denies fever or chills Eyes: Denies redness or eye pain HENT: Denies nasal congestion or sore throat Respiratory: Denies cough or shortness of breath Cardiovascular: Denies chest pain or palpitations GI: Denies abdominal pain or vomiting; reports nausea /AEROPHYSICS ENGINEER: Denies dysuria or hematuria; reports low back pain and vaginal discharge/bleeding Musculoskeletal: Denies back pain or joint pain Integument: Denies rash or skin lesions Neurologic: Denies headache, focal weakness or sensory changes Complete systems were reviewed and found to be within normal limits, except as documented in this note. Allergies: Allergies: Allergies Coded Allergies Type Severity Reaction Last Updated Verified strawberry Allergy Intermediate 08/09/16 Yes Physical Exam: PE: Constitutional: Well developed, well nourished, no acute distress, non-toxic appearance HENT: Normocephalic, atraumatic, oropharynx moist Eyes: Conjunctiva normal, no discharge Neck: Normal range of motion, no tenderness, supple Lungs & Thorax: Bilateral breath sounds clear to auscultation, no wheezing Abdomen: Soft, no tenderness, no guarding/rebound tenderness/distention Skin: Warm, dry, no erythema, no rash Pelvic exam: Intermediate Designer Lacy EDT, external genitalia normal, scant old blood noted in vaginal vault, no CMT, IUD string noted, right adnexal tenderness Extremities: No tenderness, ROM intact, no edema Neurologic: Alert and oriented X 3, no focal deficits noted Psychologic: Affect normal, judgment normal Current Patient Data: Vital Signs: Vital Signs Date Time Temp Pulse Resp B/P (MAP) Pulse Ox O2 Delivery O2 Flow Rate FiO2 11/21/19 21:13 98.1 63 20 125/70 (88) 97 Room Air EKG: EKG: [] Radiology/Procedures: Radiology/Procedures: PROCEDURE: US PELVIS W/TV US PELVIS W/TV History: Spotting today, Mirena Comparison: December 20, 2018 Findings: Multiple transabdominal sonographic images of the pelvis are submitted. Pelvic structures are poorly visualized. Transvaginal ultrasound: Multiple transvaginal sonographic images of the pelvis are submitted. There is IUD present in the endometrial cavity. There is some fluid in the cervix. There are some foci of hyperechogenicity of the myometrium. Uterus measured 7.7 x 4.2 x 3.3 cm. Endometrium is not significantly thickened, estimated about 0.3 cm in thickness. Right ovary measured 3 x 2.4 x 2.3 cm left ovary measured 3. 2 x 2 by 2.1 cm. There is normal low resistance vascularity of the ovaries bilaterally. There are some follicles of the left ovary. Impression: 1. There is IUD present in the endometrial cavity, no significant endometrial thickening demonstrated. Some foci of hyperechogenicity of the myometrium may be due to calcifications. Some fluid in the cervix could be due to blood products. Electronically signed by: Maged Singleton MD (11/21/2019 10:54 PM) [facility] Course & Med Decision Making: Course & Med Decision Making Pertinent Labs and Imaging studies reviewed. (See chart for details) Patient with past nuchal history of endometriosis and ovarian cyst presents with recurrence of pelvic pain with some vaginal bleeding and discharge. Pelvic exam performed. Chlamydia/gonorrhea cultures pending. Patient declined empiric antibiotic treatment. Wet mount negative. Labs obtained and posted to chart. Pelvic ultrasound without signs of torsion or other abnormality. [facility] report obtained with last narcotic prescribed from 06/30/10 with [place] 5/325mg x 10 tabs. Patient stable for discharge with outpatient follow-up with PCP/AEROPHYSICS ENGINEER. Discussed findings and plan with patient, who acknowledges understanding and agreement. Dragon Disclaimer: Dragon Disclaimer: This electronic medical record was generated, in whole or in part, using a voice recognition dictation system. Departure Departure: Impression: Primary Impression: Pelvic pain Disposition: 01 HOME, SELF-CARE Condition: STABLE Referrals: ESMER PICHARDO (PCP) Patient Instructions: Pelvic Pain, Female, [id number] Additional Instructions: Please follow closely with your AEROPHYSICS ENGINEER. May use previously prescribed pain medications in addition to Ibuprofen as needed. Scripts Hydrocodone Bit/Acetaminophen (NORCO 5-325 TABLET) 1 Each Tablet 1 TAB PO Q6HRS PRN for PAIN, #10 TAB Prov: LISA MOSER DO 11/21/19 LISA MOSER DO Nov 21, 2019 21:32
[2019-11-21] MEDS: IV NORMAL SALINE 1,000ML 1,000 ML IV ONE (21:36)
[2019-11-21] MEDS: KETOROLAC 15 MG/ML VIAL. IVP ONE (21:40)
[2019-11-21 21:55] LABS: BASO # 0.1 x10^3/uL (0.0-0.2); BASO % 1 % (0-3); EOS # 0.2 x10^3/uL (0.0-0.7); EOS % 1 % (0-3); HEMATOCRIT 40.1 % (36.0-47.0); HEMOGLOBIN 12.7 g/dL (12.0-15.5); LYMPH # 4.1 x10^3/uL (1.0-4.8); LYMPH % 34 % (24-48); MEAN CORPUSCULAR HEMOGLOBIN 25 pg (25-35); MEAN CORPUSCULAR HGB CONC 32 g/dL (31-37); MEAN CORPUSCULAR VOLUME 80 fL (79-100); MONO # 0.8 x10^3/uL (0.0-1.1); MONO % 7 % (0-9); NEUT # 6.9 x10^3uL (1.8-7.7); NEUT % 57 % (31-73); PLATELET COUNT 247 x10^3/uL (140-400); RED BLOOD COUNT 4.99 x10^6/uL (3.50-5.40); RED CELL DISTRIBUTION WIDTH 17.1 % (11.5-14.5); WHITE BLOOD COUNT 12.1 x10^3/uL (4.0-11.0)
[2019-11-21 22:03] LABS: CALCIUM 9.6 mg/dL (8.5-10.1); CREATININE 0.8 mg/dL (0.6-1.0); GFR 90.5; POTASSIUM 3.8 mmol/L (3.5-5.1)
[2019-11-21 22:11] LABS: ALBUMIN 4.1 g/dL (3.4-5.0); ALBUMIN/GLOBULIN RATIO 0.9 (1.0-1.7); MAGNESIUM 2.1 mg/dL (1.8-2.4); TOTAL BILIRUBIN 0.4 mg/dL (0.2-1.0); TOTAL PROTEIN 8.6 g/dL (6.4-8.2)
--- NOTE | 2019-11-21 22:57 | RAD ---
US PELVIS W/TV History: Spotting today, Mirena Comparison: December 20, 2018 Findings: Multiple transabdominal sonographic images of the pelvis are submitted. Pelvic structures are poorly visualized. Transvaginal ultrasound: Multiple transvaginal sonographic images of the pelvis are submitted. There is IUD present in the endometrial cavity. There is some fluid in the cervix. There are some foci of hyperechogenicity of the myometrium. Uterus measured 7.7 x 4.2 x 3.3 cm. Endometrium is not significantly thickened, estimated about 0.3 cm in thickness. Right ovary measured 3 x 2.4 x 2.3 cm left ovary measured 3. 2 x 2 by 2.1 cm. There is normal low resistance vascularity of the ovaries bilaterally. There are some follicles of the left ovary. Impression: 1. There is IUD present in the endometrial cavity, no significant endometrial thickening demonstrated. Some foci of hyperechogenicity of the myometrium may be due to calcifications. Some fluid in the cervix could be due to blood products. Electronically signed by: Maged Singleton MD (11/21/2019 10:54 PM) [facility]
[2019-11-21 23:18] LABS: BACTERIA,URINE 0 /HPF (0-FEW); BILIRUBIN,URINE NEG (NEG); CLARITY,URINE CLEAR; COLOR,URINE YELLOW; GLUCOSE,URINE NEG (NEG); NITRITE,URINE NEG (NEG); RBC,URINE OCC /HPF (0-2); SQUAMOUS EPITHELIAL CELL,UR OCC /LPF; UROBILINOGEN,URINE 0.2 mg/dL (0.2 mg/dL); WBC,URINE RARE /HPF (0-4)
[2019-11-21] MEDS ORDERED: HYDR-3165 PO (23:28)
[2019-11-21 23:36] VITALS: BP 121/68
[2019-11-23 16:07] LABS: CHLAMYDIA PROBE Negative (Negative)
== END 2019-11-21 23:38 | disposition home or self-care (01) ==
LOC: ER 21:00
DX: R10.2 Pelvic and perineal pain (principal); N89.8 Other specified noninflammatory disorders of vagina; M54.5 Low back pain; I45.6 Pre-excitation syndrome
CPT/HCPCS: 36415; 76830; 76856; 80053; 81001; 81025; 83690; 83735; 85025; 87491; 87591; 96374; 99284; J1885; Q0111; 96361; J7030